=== PATIENT | female | born 1960 | race Two or more races ===

== ENCOUNTER 2019-06-30 22:31 | Emergency (ER) | payer OTHER ==
[~2019-06-30] VITALS: Ht 154.9 cm; Wt 99.8 kg
[2019-06-30] MEDS ORDERED: CARVEDILOL ER40 MG (23:19)
== END 2019-07-01 00:28 | disposition home or self-care (01) ==
LOC: ER 22:31
DX: M70.61 Trochanteric bursitis, right hip (principal)

== ENCOUNTER 2022-07-21 20:05 | Emergency (ER) | payer OTHER ==
[~2022-07-21] VITALS: Ht 157.5 cm; Wt 81.6 kg
[~2022-07-21 20:05] MED LIST: ARMOUR THYROID90 MG; CAMBIA50 MG PO; CARVEDILOL ER40 MG; CARVEDILOL6.25 M1 PO; DICLOFENAC SOD100 GM; FLONASE16 GM NS; NORVASC2.5 M1 PO
== END 2022-07-21 22:56 | disposition home or self-care (01) ==
LOC: ER 20:05
DX: K64.9 Unspecified hemorrhoids (principal)